=== PATIENT | male | born 1995 | race Caucasian/White ===

== ENCOUNTER 2017-01-11 01:53 | Emergency (ER) | payer OTHER ==
[2017-01-11 02:00] VITALS: RESP 16
--- NOTE | 2017-01-11 03:42 | CT ---
EXAM: CT Head Without Intravenous Contrast CLINICAL HISTORY: Reason: Pain TECHNIQUE: Axial computed tomography images of the head/brain without intravenous contrast. DLP is 1108 mGy-cm. This CT exam was performed using one or more of the following dose reduction techniques: automated exposure control, adjustment of the mA and/or kV according to patient size, and/or use of iterative reconstruction technique. Coronal and sagittal reconstructions are performed COMPARISON: None FINDINGS: Brain: No hemorrhage. No significant white matter disease. No edema. Ventricles: No ventriculomegaly. Bones/joints: No acute fracture. Soft tissues: Unremarkable. Sinuses: 1.9 cm polyp versus retention cyst in anterior left maxillary sinus. Mastoid air cells: Unremarkable as visualized. No mastoid effusion. IMPRESSION: No acute infarct, hemorrhage, or mass effect. EXAM: CT Cervical Spine Without Intravenous Contrast CLINICAL HISTORY: Reason: Pain TECHNIQUE: Axial computed tomography images of the cervical spine without intravenous contrast. DLP is 276 mGy-cm. This CT exam was performed using one or more of the following dose reduction techniques: automated exposure control, adjustment of the mA and/or kV according to patient size, and/or use of iterative reconstruction technique.. Coronal and sagittal reconstructions are performed. COMPARISON: None FINDINGS: Vertebrae: Unremarkable. No acute fracture. Discs/spinal canal/neural foramina: No acute findings. No spinal canal stenosis. Soft tissues: Unremarkable. Lung apices: Unremarkable as visualized. IMPRESSION: No acute fracture or subluxation.
--- NOTE | 2017-01-11 03:57 | ED ---
Fall HPI - General Chief Complaint: Fall Stated Complaint: Fall Time Seen by Provider: 01/11/17 02:24 Source: EMS Mode of arrival: EMS - History of Present Illness Initial Comments: 21-year-old male patient presents to emergency department today after expressing a fall down 3 steps at [facility] where he is currently a resident. Patient is in treatment right now for benzodiazepines pain addiction. Patient states he remembers walking out to go smoke a cigarette , and then he remembers waking up. Patient states that he does have a history of seizures and is unsure if he had a seizure at that time. Staff did witness the fall and states that patient was "in and out of it", but did not mention any seizure-like activity. Patient is currently complaining of headache and neck pain. Patient denies any other injuries. He denies any back pain, chest pain, dizziness, weakness, shortness of breath, abdominal pain, nausea, vomiting , constipation, diarrhea, hematuria, dysuria, urinary frequency or urgency. - Related Data Allergies Allergy/AdvReac Type Severity Reaction Status Date / Time No Known Allergies Allergy Verified 01/11/17 01:55 Review of Systems ROS Statement: Those systems with pertinent positive or pertinent negative responses have been documented in the HPI. ROS Other: All systems not noted in ROS Statement are negative. Past Medical History Past Medical History: Seizure Disorder History of Any Multi-Drug Resistant Organisms: None Reported Past Surgical History: No Surgical Hx Reported Past Psychological History: ADD/ADHD, Anxiety, Depression Smoking Status: Current every day smoker Past Alcohol Use History: Abuse, Daily Past Drug Use History: Cocaine, Marijuana, Prescription Drug Abuse General Exam Limitations: no limitations General appearance: alert, in no apparent distress Head exam: Present: atraumatic, normocephalic, normal inspection Eye exam: Present: normal appearance, PERRL, EOMI. Absent: scleral icterus, conjunctival injection, periorbital swelling ENT exam: Present: normal exam, mucous membranes moist Neck exam: Present: normal inspection, tenderness (Mild tenderness over the cervical vertebrae). Absent: meningismus, full ROM (C-collar in place.), lymphadenopathy Respiratory exam: Present: normal lung sounds bilaterally. Absent: respiratory distress, wheezes, rales, rhonchi, stridor Cardiovascular Exam: Present: regular rate, normal rhythm, normal heart sounds. Absent: systolic murmur, diastolic murmur, rubs, gallop, clicks GI/Abdominal exam: Present: soft, normal bowel sounds. Absent: distended, tenderness, guarding, rebound, rigid Extremities exam: Present: normal inspection, full ROM, normal capillary refill. Absent: tenderness, pedal edema, joint swelling, calf tenderness Back exam: Present: normal inspection. Absent: tenderness, vertebral tenderness Neurological exam: Present: alert, oriented X3, CN II-XII intact Psychiatric exam: Present: normal affect, normal mood Skin exam: Present: warm, dry, intact, normal color. Absent: rash Course Vital Signs 01/11/17 01:55 Temperature 97.5 F L Pulse Rate 80 Respiratory 16 Rate Blood Pressure 128/74 O2 Sat by Pulse 97 Oximetry Medical Decision Making - Medical Decision Making 21-year-old male patient presents today for evaluation after experiencing a fall down 3 stairs. Patient was complaining of headache and neck pain so a CT of the brain and cervical spine were obtained which showed no acute osseous or intracranial abnormalities. C-collar was removed once CT results were back, patient does have full range of motion neck without pain. Patient is neurologically intact. Patient again denies any other injuries or pain anywhere else. Patient will be discharged back to [facility]. Patient given instructions to return for any new, worsening, or concerning symptoms. Patient given head injury instructions. Patient instructed to follow up with primary care physician in one to 2 days for recheck. Patient verbalizes understanding and agrees with this plan. - Radiology Data Radiology results: report reviewed, image reviewed CT of the head without contrast reveals no hemorrhage, no significant white matter disease, no edema. No ventriculomegaly. No acute fracture. The soft tissues are unremarkable. Sinuses do show 1.9 cm polyp versus retention cyst in the anterior left maxillary sinus. Mastoid air cells are unremarkable is visualized with no mastoid effusion. Impression by reveals no acute infarct, hemorrhage, or mass effect. CT of the cervical spine states vertebrae are unremarkable no acute fracture. No acute findings and the discs, spinal canal, or neural foramina. No spinal canal stenosis. Soft tissues are unremarkable, lung apices are unremarkable is visualized. Impression by Dr. Francisco shows no acute fracture or subluxation of the cervical spine. Disposition Clinical Impression: Head injury, Fall Disposition: HOME SELF-CARE Condition: Good Instructions: Head Injury (ED) Additional Instructions: Watch for any changes in mentation or abnormal behavior. Follow-up with primary care physician for recheck in 1-2 days. Return immediately for any new , worsening, or concerning symptoms. Referrals: Pooja Johansen MD [Primary Care Provider] - 1-2 days Time of Disposition: 03:57
[2017-01-11 05:11] VITALS: BP 127/76; PULSE 66; TEMP 97.6
== END 2017-01-11 05:09 | disposition home or self-care (01) ==
LOC: EC 01:53
DX: S09.90XA Unspecified injury of head, initial encounter (principal); M54.2 Cervicalgia; F17.210 Nicotine dependence, cigarettes, uncomplicated; W10.9XXA Fall (on) (from) unspecified stairs and steps, initial encounter; Y92.099 Unspecified place in other non-institutional residence as the place of occurrence of the external cause
CPT/HCPCS: 70450; 72125; 99284